=== PATIENT | female | born 1970 | race American Indian/Alaskan Native ===

== ENCOUNTER 2022-04-14 11:26 | Outpatient (CLI) | payer MEDICARE ==
--- NOTE | 2022-04-14 12:43 | XRay Report ---
BILATERAL KNEES STANDING 3 VIEWS INDICATION: M25.569. COMPARISON: None. IMPRESSION: No acute osseous or soft tissue abnormality. No significant DJD. BILATERAL ANKLES 3 VIEWS INDICATION: M25.569. COMPARISON: None. IMPRESSION: No acute osseous or soft tissue abnormality. No significant DJD. Signer Name: Yoandy Wayne Jr, MD Signed: 04/14/2022 12:39 PM Workstation Name: [id number]
== END 2022-04-14 11:27 | disposition home or self-care (01) ==
LOC: XRAY 11:26
PROVIDERS: ATTEND Orthopaedic Surgery
DX: M25.579 Pain in unspecified ankle and joints of unspecified foot (principal); M25.569 Pain in unspecified knee
CPT/HCPCS: 73565